=== PATIENT | female | born 1970 | race Caucasian/White ===

== ENCOUNTER 2020-07-29 22:40 | Emergency (ER) | payer MEDICARE, MEDICAID ==
[~2020-07-29] VITALS: Ht 167.6 cm; Wt 61.4 kg
[~2020-07-29 22:40] MED LIST: CALC600T15; CLON-527 PO; CRAN500C3; CYCL1DRO EACHEYE; DOXE25CA3 PO; DULO-31 PO; ERYT30GE4 TOP; MELO-102 PO; METH1TAB32 PO; MULT-620 PO; SENN-25 PO; SOLI10TA2 PO; TRIA60LO11 TOP; [UNRECOGNIZED DRUG - CODE] IT
[2020-07-29 23:21] LABS: COLOR,URINE YELLOW (Yellow); GLUCOSE, URINE NEGATIVE (Neg); KETONES,URINE NEGATIVE (Neg); LEUKOCYTE ESTERASE ,URINE SMALL (Neg); NITRITES, URINE POSITIVE (Neg); OCCULT BLOOD,URINE LARGE (Neg); PROTEIN,URINE 100 mg/dl (Neg); UROBILINOGEN,URINE 0.2 E.U/dL (0.2-1.0)
[2020-07-29 23:27] LABS: UA COLLECTION TYPE FOLEY CATH
[2020-07-29 23:28] LABS: BACTERIA,URINE 1+ /HPF (Neg); CLARITY,URINE SLIGHTLY CLOUDY (Clear); RBC,URINE 50-100 /HPF (0-2); SQUAMOUS EPITHELIAL CELL,UR FEW /LPF (FEW)
[2020-07-30] MEDS ORDERED: normal saline 1000ML IV soln IVB ONE (00:50)
[2020-07-30] MEDS ORDERED: iohexol 300mg/ml 100ml inj. ONE (01:22)
[2020-07-30 02:35] LABS: BASOPHILS # (AUTO) 0.1 X10'3 (0-0.2); BASOPHILS % (AUTO) 0.8 % (0-1); EOSINOPHILS # (AUTO) 0.3 X10'3 (0-0.9); EOSINOPHILS % (AUTO) 2.7 % (0-6); HEMATOCRIT 37.9 % (35.0-45.0); HEMOGLOBIN 12.7 g/dl (12.0-16.0); LYMPHOCYTES # (AUTO) 2.6 X10'3 (1.1-4.8); LYMPHOCYTES % (AUTO) 24.1 % (21-51); MEAN CORPUSCULAR HEMOGLOBIN 31.2 PG (27.0-31.0); MEAN CORPUSCULAR HGB CONC 33.6 g/dL (33.0-36.5); MEAN CORPUSCULAR VOLUME 92.8 FL (78-98); MEAN PLATELET VOLUME 9.8 FL (7.4-10.4); MONOCYTES # (AUTO) 0.7 X10'3 (0-0.9); MONOCYTES % (AUTO) 6.7 % (2-12); NEUTROPHILS # (AUTO) 6.9 X10'3 (1.8-7.7); NEUTROPHILS % (AUTO) 65.7 % (42-75); PLATELET COUNT 238 X10'3 (140-440); RED BLOOD COUNT 4.08 X10'6 (4.20-5.60); RED CELL DISTRIBUTION WIDTH 12.7 % (11.5-14.5); WHITE BLOOD COUNT 10.6 X10'3 (4.5-11.0)
[2020-07-30 02:48] LABS: ALANINE AMINOTRANSFERASE 33 U/L (12-78); ALBUMIN 3.7 G/DL (3.4-5.0); ALBUMIN/GLOBULIN RATIO 0.9 (1.1-1.5); ALKALINE PHOSPHATASE 78 IU/L (46-116); ANION GAP 8 (8-16); ASPARTATE AMINO TRANSFERASE 21 U/L (10-37); BILIRUBIN,TOTAL 0.2 MG/DL (0.1-1.0); BLOOD UREA NITROGEN 8 MG/DL (7-18); CHLORIDE 99 MMOL/L (99-107); CREATININE 0.47 MG/DL (0.40-0.90); GLUCOSE 112 MG/DL (70-104); LIPASE 178 U/L (73-393); SODIUM 136 MMOL/L (135-145); TOTAL CARBON DIOXIDE 28.6 MMOL/L (24-32); TOTAL PROTEIN 7.9 G/DL (6.4-8.2); eGFR > 90 ML/MIN
[2020-07-30] MEDS ORDERED: CefTRIAXone 2gm/D5W 50ml BAG 50 ML IV ONE (03:05)
--- NOTE | 2020-07-30 03:14 | NUR ---
Pt stated she felt as if her bladder was full and felt as if her catheter was blocked. Pt suprapubic cath assessed, no kinks or blockages were found. Catheter flushed with sterile water. Catheter flushed and fluid was drawn back with no blockage or difficulty. No blood clots or discolored urine noted.
[2020-07-30 03:30] VITALS: BP 95/52
[2020-07-30] MEDS ORDERED: NITR100C6 PO (05:56)
--- NOTE | 2020-08-03 16:40 | NUR ---
Spoke with patient regarding UA culture results and MD wanted to prescribe patient another antibiotic if patient was having continued symptoms. Patient did report no blood in catheter, but states that she is unsure if symptoms are getting better. So I Called in prescription to [facility] in [place] per patient request. Dr. Vegas prescribed patient Cipro 500 mg PO BID x7 days total 14 days. Left voicemail with pharmacy.
== END 2020-07-30 06:42 | disposition home or self-care (01) ==
LOC: ER 22:41
DX: S14.109A Unspecified injury at unspecified level of cervical spinal cord, initial encounter (principal); N39.0 Urinary tract infection, site not specified; R31.9 Hematuria, unspecified; G82.50 Quadriplegia, unspecified; Z88.2 Allergy status to sulfonamides; Z88.1 Allergy status to other antibiotic agents; Z79.899 Other long term (current) drug therapy; Z56.0 Unemployment, unspecified; X58.XXXA Exposure to other specified factors, initial encounter; Y93.89 Activity, other specified; Y92.89 Other specified places as the place of occurrence of the external cause; Y99.8 Other external cause status
CPT/HCPCS: 36415; 74178; 80053; 81001; 83690; 85025; 87077; 87088; 87186; 96361; 96365; 99285; J0696; J7030; Q9967

== ENCOUNTER 2020-11-04 10:07 | Day surgery (SDC) | payer BC, MEDICAID ==
[2020-10-28 17:05] LABS: BASOPHILS % (AUTO) 0.5 % (0-1); EOSINOPHILS # (AUTO) 0.2 X10'3 (0-0.9); EOSINOPHILS % (AUTO) 2.2 % (0-6); LYMPHOCYTES % (AUTO) 22.3 % (21-51); MEAN CORPUSCULAR HEMOGLOBIN 30.8 PG (27.0-31.0); MEAN CORPUSCULAR HGB CONC 33.3 g/dL (33.0-36.5); MEAN CORPUSCULAR VOLUME 92.4 FL (78-98); MEAN PLATELET VOLUME 9.2 FL (7.4-10.4); MONOCYTES # (AUTO) 0.8 X10'3 (0-0.9); MONOCYTES % (AUTO) 8.6 % (2-12); NEUTROPHILS % (AUTO) 66.4 % (42-75); PRE OP HEMATOCRIT 40.7 % (35.0-45.0); PRE OP HEMOGLOBIN 13.6 g/dL (12.0-16.0); PRE OP PLATELET COUNT 218 X10'3 (140-440); RED CELL DISTRIBUTION WIDTH 12.5 % (11.5-14.5)
[2020-10-28 17:28] LABS: ALBUMIN 3.5 G/DL (3.4-5.0); ALBUMIN/GLOBULIN RATIO 0.8 (1.1-1.5); ALKALINE PHOSPHATASE 82 IU/L (46-116); BLOOD UREA NITROGEN 15 MG/DL (7-18); BUN/CREATININE RATIO 30.6 (6.6-38.0); CALCIUM 9.3 MG/DL (8.5-10.1); CHLORIDE 102 MMOL/L (99-107); CREATININE 0.49 MG/DL (0.40-0.90); PRE OP ALT 32 U/L (30-65); PRE OP ANION GAP 9 (8-16); PRE OP AST 27 U/L (10-37); PRE OP BILIRUB, TOTAL 0.2 MG/DL (0.0-1.0); PRE OP GLUCOSE 122 MG/DL (70-104); PRE OP SODIUM 137 MMOL/L (135-145); TOTAL CARBON DIOXIDE 25.7 MMOL/L (24-32); TOTAL PROTEIN 7.8 G/DL (6.4-8.2); eGFR > 90 ML/MIN
[2020-10-28 17:35] LABS: PRE OP POTASSIUM 4.2 MMOL/L (3.4-5.1)
[2020-11-04] VITALS (17 sets, daily range): BP systolic 114–195; BP diastolic 55–111
[~2020-11-04] VITALS: Ht 167.6 cm; Wt 68.0 kg
[~2020-11-04 10:07] MED LIST changes: +ASCO-134 PO; -CLON-527 PO; -CRAN500C3; -CYCL1DRO EACHEYE; -ERYT30GE4 TOP; +FAMO-156 PO; +FESO4TAB PO; +LACT1CAP65 PO; -MELO-102 PO; -SOLI10TA2 PO; -TRIA60LO11 TOP; +ceFAZolin 2gm in dextrose, iso 50 ML IV ONE; +famotidine 20mg tablet PO ONE; +ringers solution, lacted 1,000 ML IV SCH
[2020-11-04 12:41] LABS: PREOP HCG, QL SERUM NEGATIVE (NEGATIVE)
[2020-11-04] MEDS ORDERED: ondansetron/PF 4mg/2ml inj IV PRN (13:00)
[2020-11-04] MEDS ORDERED: ringers solution, lacted 1,000 ML IV SCH (13:00)
[2020-11-04] MEDS ORDERED: labetalol 20mg/4ml (5mg/ml) syringe IV PRN (13:00)
[2020-11-04] MEDS ORDERED: fentaNYL/PF 50MCG/1 ML 2ML syringe IV PRN ×2 (13:00)
[2020-11-04] MEDS ORDERED: morphine 4 MG/ML inj SYRINge IV PRN (13:00)
[2020-11-04] MEDS ORDERED: morphine 2 MG/ML inj. syringe IV PRN (13:00)
[2020-11-04] MEDS ORDERED: hydrALAZINE 20mg/ml inj. IV PRN (13:00)
[2020-11-04] MEDS ORDERED: phenylephrine 10mg/ml inj. ONE (13:04)
[2020-11-04] MEDS ORDERED: sevoflurane 250ml liquid IH ONE (13:04)
[2020-11-04] MEDS ORDERED: fentaNYL/PF 50MCG/1 ML 2ML syringe ONE (13:06)
[2020-11-04] MEDS ORDERED: midazolam 1 mg/ML 2ml injection ONE (13:07)
[2020-11-04] MEDS ORDERED: ondansetron/PF 4mg/2ml inj ONE (13:07)
[2020-11-04] MEDS ORDERED: LIDOcaine 2% (20mg/ml) 5ml vial ONE (13:07)
[2020-11-04] MEDS ORDERED: propofol inj 20 ML IV ONE (13:07)
[2020-11-04] MEDS ORDERED: dexamethasone sod phosphate 4mg/ml inj. ONE (13:08)
--- NOTE | 2020-11-04 14:08 | NUR ---
Received from OR via [facility] , accompanied by Anesthesiologist DR TALAVERA and report given by Anesthesiologist. PT DROWSY, DENIES PAIN, UROSTOMY CATHETER W/BLOODY DRAINAGE, SMALL MEDIPORE TAPE DRSG COVERING CATHETER INSERTION SITE CDI. AFTER APPROX 1 HOUR, PT STATES SHE WAS HAVING SPASMS AND WAS LEAKING AT HER URETHRA, CALL INTO DR PALAFOX, ORDERS RECEIVED TO IRRIGATE WINTER CATHETER. IRRIGATED, NO RESISTANCE NOTED, PINK URINE RETURN. SPASMS REPEATED A SECOND TIME 30 MINUTES LATER, DR PALAFOX IN TO ASSESS PT, IRRIGATED WINTER CATHETER W/RETURN OF SMALL CLOTS AND PINK URINE. I MONITORED PT FOR ANOTHER HOUR W/O ANY REPEAT OF SPASMS, PINK URINE DRAINING TO GRAVITY DRAINAGE IN WINTER BAG. DR CHAVEZ IN, UPDATED, PT OKAY FOR D/C TO HOME. D/C INSTRUCTIONS GIVEN AND GONE OVER W/PT WHO VERBALIZED UNDERSTANDING. PT D/CD TO PRIVIATE VEHICLE VIA HER OWN W/C W/O INCIDENT. Addendum: 11/04/20 at 1729 by Pam Acosta RN Amended: Links added.
== END 2020-11-04 16:58 | disposition home or self-care (01) ==
LOC: PAS 10:07
PROVIDERS: ATTEND Urology
DX: R31.0 Gross hematuria (principal); N21.0 Calculus in bladder; F41.9 Anxiety disorder, unspecified; G62.9 Polyneuropathy, unspecified; F32.9 Major depressive disorder, single episode, unspecified; Z79.899 Other long term (current) drug therapy; Z20.822 Contact with and (suspected) exposure to COVID-19; Z98.1 Arthrodesis status; Z98.890 Other specified postprocedural states; Z90.49 Acquired absence of other specified parts of digestive tract; Z86.718 Personal history of other venous thrombosis and embolism; Z86.14 Personal history of Methicillin resistant Staphylococcus aureus infection; Z88.1 Allergy status to other antibiotic agents; Z88.2 Allergy status to sulfonamides; Z87.440 Personal history of urinary (tract) infections; Z83.3 Family history of diabetes mellitus
CPT/HCPCS: 36415; 51705; 52317; 80053; 82948; 84703; 85025; 93005; C1729; C1758; C1769; J1100; J2001; J2250; J2405; J2704; J3010; U0003; A4618; A6449; J2370; J7120

== ENCOUNTER 2025-07-19 13:26 | Outpatient (CLI) | payer MEDICARE, MEDICAID ==
[~2025-07-19 13:26] MED LIST changes: -CALC600T15; +CALC600T35; -METH1TAB32 PO; +METH1TAB69 PO; -SENN-25 PO; +SENN-398 PO; -ceFAZolin 2gm in dextrose, iso 50 ML IV ONE; -famotidine 20mg tablet PO ONE; -ringers solution, lacted 1,000 ML IV SCH
--- NOTE | 2025-07-19 17:32 | CARDIOLOGY REPORT ---
APPROVED REPORT EXAM: Comprehensive 2D, Doppler, and color-flow Echocardiogram. Patient Location: OUT-PATIENT Heart Rate: 51 bpm Rhythm: SINUS BRADYCARDIA w/BBB Indications ABNORMAL EKG RBBB Physical Therapy Aid: none Previous echo: none 2D Dimensions IVSd 1.0 (0.7-1.1cm) LVDd 4.1 cm PWd 1.0 (0.7-1.1cm) IVSs 1.3 (0.8-1.2cm) LVDs 2.7 (2.5-4.0cm) PWs 1.4 (0.8-1.2cm) LVOT Diameter 1.79 (1.8-2.4cm) LVEF(%) 64.9 (>50%) Ao Asc Diam. 3.44 cm FS (%) 35.1 % SV 49.1 ml Aortic Valve AoV Peak Candido. 178.4 cm/s AoV VTI 40.1 cm AO Peak GR. 12.8 mmHg AO Mean GR. 7 mmHg LVOT VTI 31.96 cm LVOT Peak Candido. 128.1 cm/s KORY (VMAX) 1.80 cm2 KORY (VTI) 2.00 cm2 Mitral Valve MV E Velocity 134.9 cm/s MV DECEL TIME 197 ms MV A Velocity 97.4 cm/s MV PHT 73 ms E/A Ratio 1.4 MVA (PHT) 3.02 cm2 TDI E/Medial E' 14.8 Pulmonary Vein S2 Velocity 55.57 cm/s PVa Duration 126 msec LEFT VENTRICLE Normal LV size and wall thickness. Overall systolic function is normal. LVEF is 60-65%. RIGHT VENTRICLE RV is normal size and function. ATRIA LA size is normal. RA size is normal. AORTIC VALVE Trileaflet AV appears minimally sclerotic without stenosis or insufficiency by color and spectral flow Doppler. MITRAL VALVE Mild MV annular calcification without stenosis. Trace regurgitation by color and spectral flow Doppler. TRICUSPID VALVE TV appears structurally normal with trace regurgitation by color and spectral flow Doppler. PULMONIC VALVE Normal PV without stenosis, physiologic insufficiency by color and spectral flow Doppler. GREAT VESSELS Aortic root is normal in size. Ascending aorta is normal in size. PERICARDIUM Normal pericardium. No effusion. Other Information Study Quality: Adequate Conclusion Normal LV size and wall thickness. Overall systolic function is normal. LVEF is 60-65%. RV is normal size and function. LA size is normal. Trileaflet AV appears minimally sclerotic without stenosis or insufficiency by color and spectral flow Doppler. Mild MV annular calcification without stenosis. Trace regurgitation by color and spectral flow Doppler. TV appears structurally normal with trace regurgitation by color and spectral flow Doppler. Normal pericardium. No effusion.
== END 2025-07-19 23:59 | disposition home or self-care (01) ==
LOC: CARD DIAG 13:26
PROVIDERS: ATTEND Family Medicine
DX: I08.8 Other rheumatic multiple valve diseases (principal); R94.31 Abnormal electrocardiogram [ECG] [EKG]; I45.10 Unspecified right bundle-branch block
CPT/HCPCS: 93306